=== PATIENT | female | born 1980 | race Caucasian/White ===

== ENCOUNTER 2016-06-26 19:35 | Emergency (ER) | payer MEDICAID, OTHER ==
[~2016-06-26] VITALS: Ht 180.3 cm; Wt 83.9 kg
--- OUTSIDE RECORDS SUMMARY | 2016-06-26 19:45 | XMS REPORT ---
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 Problem Dysthymic disorder 300.4 Active Assessment Tooth pain 525.9 Active Medications Medication Code System Code Instructions Start Date End Date Status Dosage HydrOXYzine HCl [facility] [address]-63 25 MG Orally every 6 hrs October 14, 2014 1 tablet as needed for svere anxiety Gabapentin [facility] [address]-51 100 mg August 20, 2014 1 capsule by Oral route 3 times per day shingles pain Amoxicillin [facility] [address]-14 500 MG Orally every 12 hrs December 29, 2014 January 08, 2015 2 tablet Remeron [facility] [address]-43 15 MG Orally Once a day 1 tablet before bedtime in the evening Fluoxetine [facility] [address]-28 20 MG Once a day August 20, 2014 2 capsule by Oral route 1 time per day BusPIRone HCl [facility] [address]-17 15 MG Orally Three times a day 1 tablet in am 2 tab at noon and 1 tab at hs [place] [facility] [address]-15 7.5-325 MG Orally every 6 hrs December 29, 2014 January 03, 2015 1 tablet as needed Procedures Procedure Coding System Code Date Office Visit, Est Pt., Level 3 CPT-4 62809 December 29, 2014 Vital Signs Date/Time: December 29, 2014 Temperature 98.8 F Weight 209.8 lbs Height 71 in BMI 29.26 Index Blood Pressure Diastolic 78 mmHg Blood Pressure Systolic 122 mmHg Cardiac Monitoring Heart Rate 105 bpm Results No Known Results Summary Purpose [employer] Submission
[2016-06-26 20:06] LABS: BILIRUBIN,URINE NEGATIVE (NEGATIVE); KETONES,URINE NEGATIVE (NEGATIVE); LEUKOCYTE ESTERASE ,URINE 1+ (NEGATIVE); NITRITE,URINE NEGATIVE (NEGATIVE); PH,URINE 7 (5-9); PROTEIN,URINE NEGATIVE (NEGATIVE); UROBILINOGEN,URINE 4 MG/DL (NORMAL)
--- NOTE | 2016-06-26 20:13 | ED General ---
General Chief Complaint: General Problems/Pain Stated Complaint: HEAD COLD, LUMP ON NECK, SPOTTING Nursing Triage Note: PT TO ED 6 W/ C/O LUMP ON NECK ONSET AFTER URI. ALSO C/O IRREGULAR VAGINAL BLEEDING X6 WEEKS. NO OTHER C/O VOICED Nursing Sepsis Screen: No Definite Risk Source of Information: Patient Exam Limitations: No Limitations History of Present Illness Time Seen by Provider: 20:12 Initial Comments To ER with a lump on the back of her neck. She's recently for the past week then ill with a cough runny nose and sore throat. She also reports intermittent vaginal bleeding for the past 6 weeks. Timing/Duration: Intermittent Severity: Moderate Allergies and Home Medications Allergies Uncoded Allergies: NKDA (Allergy, Unknown, 06/26/16) RECOVERING ADDICT, NO NARCS PER PT (Allergy, Unknown, 06/26/16) Constitutional: see HPI EENTM: see HPI Respiratory: no symptoms reported Cardiovascular: no symptoms reported Genitourinary: no symptoms reported Musculoskeletal: no symptoms reported Skin: no symptoms reported Psychiatric/Neurological: No Symptoms Reported Hematologic/Lymphatic: No Symptoms Reported Past Sbbglcz-Utwolj-Rxggrc Hx Patient Social History Alcohol Use: Past History Recreational Drug Use: No (HX OF, 10MOS 1DAY CLEAN OF 06/26/16) Smoking Status: Current Everyday Smoker Recent Foreign Travel: No Contact w/Someone Who Travel: No Recent Infectious Disease Expo: No Recent Hopitalizations: No Physical Abuse Screen: No Sexual Abuse: No Surgeries HX Surgeries: Yes Surgeries: Section, Tubal Ligation Respiratory Hx Respiratory Disorders: No Cardiovascular Hx Cardiac Disorders: No Neurological Hx Neurological Disorders: No Reproductive System Hx Reproductive Disorders: No Genitourinary Hx Genitourinary Disorders: No Gastrointestinal Hx Gastrointestinal Disorders: No Musculoskeletal Hx Musculoskeletal Disorders: No Endocrine Hx Endocrine Disorders: No HEENT HX ENT Disorders: No Cancer Hx Cancer: No Psychosocial Hx Psychiatric Problems: No Integumentary HX Skin/Integumentary Disorder: No Blood Transfusions Hx Blood Disorders: No Physical Exam Vital Signs Vital Sign - Last 12Hours 06/26/16 19:49 Temp 99.7 Pulse 88 Resp 20 B/P 138/102 Pulse Ox 98 O2 Delivery Room Air Capillary Refill : Less Than 3 Seconds General Appearance: No Apparent Distress WD/WN Eyes: Bilateral Eye EOMI, Bilateral Eye Normal Inspection, Bilateral Eye PERRL HEENT: PERRL/EOMI TMs Normal Other (there is a tender mobile 1-2 cm soft nodule at the base of the occiput on the right side.) Neck: Full Range of Motion Normal Inspection Respiratory: No Accessory Muscle Use No Respiratory Distress Cardiovascular: Regular Rate, Rhythm Normal Peripheral Pulses Gastrointestinal: Normal Bowel Sounds Non Tender Soft Neurologic/Psychiatric: Alert Oriented x3 No Motor/Sensory Deficits Skin: Normal Color Warm/Dry Comments No other lymphadenopathy in the neck palpable. Progress/Results/Core Measures Results/Orders Lab Results Laboratory Tests Test 06/26/16 19:55 06/26/16 20:14 Range/Units Ur Tricyclic Antidepressants Screen NEGATIVE NEGATIVE Urine Amorphous Sediment RARE NEEMA URATES H /LPF Urine Amphetamines Screen NEGATIVE NEGATIVE Urine Bacteria NONE /HPF Urine Barbiturates Screen NEGATIVE NEGATIVE Urine Benzodiazepines Screen NEGATIVE NEGATIVE Urine Bilirubin NEGATIVE NEGATIVE Urine Cannabinoids Screen NEGATIVE NEGATIVE Urine Casts NONE /LPF Urine Clarity SLIGHTLY CLOUDY Urine Cocaine Screen NEGATIVE NEGATIVE Urine Color YELLOW Urine Crystals PRESENT H /LPF Urine Culture Indicated NO Urine Glucose (UA) NEGATIVE NEGATIVE Urine Ketones NEGATIVE NEGATIVE Urine Leukocyte Esterase 1+ H NEGATIVE Urine Methadone Screen NEGATIVE NEGATIVE Urine Methamphetamines Screen NEGATIVE NEGATIVE Urine Mucus NEGATIVE /LPF Urine Nitrite NEGATIVE NEGATIVE Urine Opiates Screen NEGATIVE NEGATIVE Urine Oxycodone Screen NEGATIVE NEGATIVE Urine Phencyclidine Screen NEGATIVE NEGATIVE Urine Propoxyphene Screen NEGATIVE NEGATIVE Urine Protein NEGATIVE NEGATIVE Urine RBC 5-10 H /HPF Urine RBC (Auto) 2+ H NEGATIVE Urine Specific [place] 1.010 L 1.016-1.022 Urine Squamous Epithelial Cells 5-10 /HPF Urine Urobilinogen 4 H NORMAL MG/DL Urine WBC 0-2 /HPF Urine pH 7 5-9 Basophils # (Auto) 0.0 0.0-0.1 10^3/uL Basophils (%) (Auto) 0 0-10 % Eosinophils # (Auto) 0.2 0.0-0.3 10^3/uL Eosinophils (%) (Auto) 2 0-10 % Hematocrit 40 35-52 % Hemoglobin 14.1 11.5-16.0 G/DL Lymphocytes # (Auto) 4.0 1.0-4.0 X 10^3 Lymphocytes (%) (Auto) 36 12-44 % Mean Corpuscular Hemoglobin 32 25-34 PG Mean Corpuscular Hemoglobin Concent 35 32-36 G/DL Mean Corpuscular Volume 93 80-99 FL Mean Platelet Volume 9.2 7.4-10.4 FL Monocytes # (Auto) 0.7 0.0-1.0 X 10^3 Monocytes (%) (Auto) 7 0-12 % Monoscreen NEGATIVE NEGATIVE Neutrophils # (Auto) 6.1 1.8-7.8 X 10^3 Neutrophils (%) (Auto) 55 42-75 % Platelet Count 227 130-400 10^3/uL Red Blood Count 4.35 4.35-5.85 10^6/uL Red Cell Distribution Width 13.1 10.0-14.5 % White Blood Count 11.0 4.3-11.0 10^3/uL My Orders Orders-MABEL SERVIN APRN Cbc With Automated Diff (06/26/16 20:01) Ua Culture If Indicated (06/26/16 20:02) Urine Bedside (06/26/16 20:02) Monotest (06/26/16 20:14) Drug Screen Stat (Urine) (06/26/16 20:21) Vital Signs/I&O Vital Sign - Last 12Hours 06/26/16 19:49 Temp 99.7 Pulse 88 Resp 20 B/P 138/102 Pulse Ox 98 O2 Delivery Room Air Blood Pressure Mean: 114 Departure Impression Impression: Primary Impression: Lymphadenopathy Disposition: 01 HOME, SELF-CARE Condition: Stable Departure-Patient Inst. Decision time for Depature: 20:46 Referrals: [facility] (PCP) Primary Care Physician Patient Instructions: LYMPH NODE SWELLING Add. Discharge Instructions: 1. Follow-up with your regular doctor next week 2. Tylenol and Motrin for pain 3. All discharge instructions reviewed with patient and/or family. Voiced understanding. MABEL SERVIN APRN Jun 26, 2016 20:13
[2016-06-26 20:14] LABS: WBC,URINE 0-2 /HPF
[2016-06-26 20:33] LABS: BASOPHILS % (AUTO) 0 % (0-10); EOSINOPHILS # (AUTO) 0.2 10^3/uL (0.0-0.3); EOSINOPHILS % (AUTO) 2 % (0-10); LYMPHOCYTES % (AUTO) 36 % (12-44); MEAN CORPUSCULAR HEMOGLOBIN 32 PG (25-34); MEAN CORPUSCULAR HGB CONC 35 G/DL (32-36); MEAN CORPUSCULAR VOLUME 93 FL (80-99); MEAN PLATELET VOLUME 9.2 FL (7.4-10.4); MONOCYTES # (AUTO) 0.7 X 10^3 (0.0-1.0); MONOCYTES % (AUTO) 7 % (0-12); NEUTROPHILS # (AUTO) 6.1 X 10^3 (1.8-7.8); NEUTROPHILS % (AUTO) 55 % (42-75); PLATELET COUNT 227 10^3/uL (130-400); RED BLOOD COUNT 4.35 10^6/uL (4.35-5.85); RED CELL DISTRIBUTION WIDTH 13.1 % (10.0-14.5)
[2016-06-26 21:03] VITALS: BP 133/95
[2016-07-16] MEDS ORDERED: NITR-65 PO (16:53)
== END 2016-06-26 21:03 | disposition home or self-care (01) ==
LOC: ER 19:41
DX: R59.0 Localized enlarged lymph nodes (principal); N93.9 Abnormal uterine and vaginal bleeding, unspecified; F17.210 Nicotine dependence, cigarettes, uncomplicated
CPT/HCPCS: 36415; 80306; 81000; 84703; 85025; 86308; 99282

== ENCOUNTER 2016-07-02 13:03 | Emergency (ER) | payer MEDICAID ==
[~2016-07-02] VITALS: Ht 167.6 cm; Wt 86.2 kg
--- NOTE | 2016-07-02 13:13 | ED Neurological Problem ---
General Stated Complaint: DISORIENTED/CONFUSION Source: patient Exam Limitations: no limitations History of Present Illness Time seen by provider: 13:11 Initial Comments To ER with reports of confusion/disorientation and trouble focusing since arriving home from work this morning. However, she was able to drive herself to the emergency room and check in. She is employed at [employer]. She was seen here a week ago for lymphadenopathy, menstrual bleeding for 6 weeks and diagnosed with viral syndrome and instructed to follow-up with primary care. She has not followed up with primary care. She reports that her symptoms have improved from last week with lymphadenopathy having resolved, no fevers. Intermittent headaches though none recently. No vomiting. Former opiate addict and states that she would use "anything" but states that she's been clean for a year. No neck stiffness complaints. No fevers. Timing/Duration: 1 week Severity: moderate Allergies and Home Medications Allergies Uncoded Allergies: NKDA (Allergy, Unknown, 06/26/16) RECOVERING ADDICT, NO NARCS PER PT (Allergy, Unknown, 06/26/16) Constitutional: see HPINo chills, No fever Eyes: No Symptoms Reported Ears, Nose, Mouth, Throat: no symptoms reported Respiratory: no symptoms reported Cardiovascular: no symptoms reported Genitourinary: no symptoms reported Musculoskeletal: no symptoms reported Skin: no symptoms reported Psychiatric/Neurological: See HPI Cognitive Dysfunction Past Xamngzi-Dqbaux-Bzotrt Hx Patient Social History Recent Foreign Travel: No Contact w/Someone Who Travel: No Recent Hopitalizations: No Surgeries HX Surgeries: Yes Surgeries: Section, Tubal Ligation Respiratory Hx Respiratory Disorders: No Cardiovascular Hx Cardiac Disorders: No Neurological Hx Neurological Disorders: No Reproductive System Hx Reproductive Disorders: No Genitourinary Hx Genitourinary Disorders: No Gastrointestinal Hx Gastrointestinal Disorders: No Musculoskeletal Hx Musculoskeletal Disorders: No Endocrine Hx Endocrine Disorders: No HEENT HX ENT Disorders: No Cancer Hx Cancer: No Psychosocial Hx Psychiatric Problems: No Integumentary HX Skin/Integumentary Disorder: No Blood Transfusions Hx Blood Disorders: No Physical Exam Vital Signs Vital Sign - Last 12Hours 07/02/16 13:06 Temp 97.5 Pulse 98 Resp 16 B/P 142/94 Pulse Ox 100 O2 Delivery Room Air Capillary Refill : General Appearance: WD/WN no apparent distress HEENT: PERRL/EOMI normal ENT inspection Neck: non-tender full range of motionNo tender lateral, No tender midline, other (no nuchal rigidity) Respiratory: normal breath sounds no respiratory distress no accessory muscle use Cardiovascular: regular rate, rhythm no murmur Peripheral Pulses: 0 Carotid (R), 0 Carotid (L), 0 Femoral (R), 0 Femoral (L), 0 Dorsalis Pedis (R), 0 Left Dors-Pedis (L), 0 Radial Pulses (R), 0 Radial Pulses (L) Gastrointestinal: normal bowel sounds soft Extremities: normal range of motion non-tender Neurologic/Psychiatric: alert normal mood/affect oriented x 3 Crainal Nerves: normal hearing normal speech Coordination/Gait: normal gait Motor/Sensory: no motor deficit Skin: warm/dry Comments Conversation is appropriate, she is alert and joking with staff. There is no confusion I'm able to notice. Progress/Results/Core Measures Results/Orders Lab Results Laboratory Tests Test 07/02/16 13:15 Range/Units Alanine Aminotransferase (ALT/SGPT) 19 0-55 U/L Albumin 4.2 3.2-4.5 G/DL Alkaline Phosphatase 46 40-136 U/L Anion Gap 11 5-14 MMOL/L Aspartate Amino Transf (AST/SGOT) 15 5-34 U/L BUN/Creatinine Ratio 15 Basophils # (Auto) 0.0 0.0-0.1 10^3/uL Basophils (%) (Auto) 0 0-10 % Blood Urea Nitrogen 14 7-18 MG/DL Calcium Level 9.0 8.5-10.1 MG/DL Carbon Dioxide Level 20 L 21-32 MMOL/L Chloride Level 110 H 98-107 MMOL/L Creatinine 0.94 0.60-1.30 MG/DL Eosinophils # (Auto) 0.1 0.0-0.3 10^3/uL Eosinophils (%) (Auto) 1 0-10 % Estimat Glomerular Filtration Rate > 60 Glucose Level 112 H 70-105 MG/DL Hematocrit 42 35-52 % Hemoglobin 14.7 11.5-16.0 G/DL Lymphocytes # (Auto) 3.4 1.0-4.0 X 10^3 Lymphocytes (%) (Auto) 26 12-44 % Mean Corpuscular Hemoglobin 32 25-34 PG Mean Corpuscular Hemoglobin Concent 35 32-36 G/DL Mean Corpuscular Volume 91 80-99 FL Mean Platelet Volume 9.1 7.4-10.4 FL Monocytes # (Auto) 0.9 0.0-1.0 X 10^3 Monocytes (%) (Auto) 7 0-12 % Neutrophils # (Auto) 8.8 H 1.8-7.8 X 10^3 Neutrophils (%) (Auto) 67 42-75 % Platelet Count 235 130-400 10^3/uL Potassium Level 3.5 L 3.6-5.0 MMOL/L Red Blood Count 4.54 4.35-5.85 10^6/uL Red Cell Distribution Width 12.9 10.0-14.5 % Sodium Level 141 135-145 MMOL/L Total Bilirubin 0.4 0.1-1.0 MG/DL Total Protein 7.1 6.4-8.2 G/DL Ur Tricyclic Antidepressants Screen NEGATIVE NEGATIVE Urine Amorphous Sediment FEW NEEMA PHOSPHATE H /LPF Urine Amphetamines Screen NEGATIVE NEGATIVE Urine Bacteria MODERATE H /HPF Urine Barbiturates Screen NEGATIVE NEGATIVE Urine Benzodiazepines Screen NEGATIVE NEGATIVE Urine Bilirubin NEGATIVE NEGATIVE Urine Cannabinoids Screen NEGATIVE NEGATIVE Urine Casts NONE /LPF Urine Clarity SLIGHTLY CLOUDY Urine Cocaine Screen NEGATIVE NEGATIVE Urine Color YELLOW Urine Crystals NONE /LPF Urine Culture Indicated YES Urine Glucose (UA) NEGATIVE NEGATIVE Urine Ketones NEGATIVE NEGATIVE Urine Leukocyte Esterase 1+ H NEGATIVE Urine Methadone Screen NEGATIVE NEGATIVE Urine Methamphetamines Screen NEGATIVE NEGATIVE Urine Mucus NEGATIVE /LPF Urine Nitrite NEGATIVE NEGATIVE Urine Opiates Screen NEGATIVE NEGATIVE Urine Oxycodone Screen NEGATIVE NEGATIVE Urine Phencyclidine Screen NEGATIVE NEGATIVE Urine Propoxyphene Screen NEGATIVE NEGATIVE Urine Protein NEGATIVE NEGATIVE Urine RBC NONE /HPF Urine RBC (Auto) 1+ H NEGATIVE Urine Specific [place] 1.015 L 1.016-1.022 Urine Squamous Epithelial Cells 0-2 /HPF Urine Urobilinogen 4 H NORMAL MG/DL Urine WBC 2-5 /HPF Urine pH 8 5-9 White Blood Count 13.2 H 4.3-11.0 10^3/uL My Orders Orders-MABEL SERVIN DOOR CAPTAIN Cbc With Automated Diff (07/02/16 13:10) Comprehensive Metabolic Panel (07/02/16 13:10) Thyroid Stimulating Hormone (07/02/16 13:10) Ua Culture If Indicated (07/02/16 13:10) Drug Screen Stat (Urine) (07/02/16 13:10) Urine Bedside (07/02/16 13:10) Ct Head Wo (07/02/16 13:10) Urine Culture (07/02/16 13:15) Vital Signs/I&O Vital Sign - Last 12Hours 07/02/16 13:06 Temp 97.5 Pulse 98 Resp 16 B/P 142/94 Pulse Ox 100 O2 Delivery Room Air Diagnostic Imaging Diagonstic Imaging: CT Comments NAME: LIANE GODFREY [facility] REC#: [id number] PT STATUS: REG ER : 1980 PHYSICIAN: MABEL SERVIN APRN ADMIT DATE: 07/02/16/ER Draft Date of Exam:07/02/16 CT HEAD WO PROCEDURE: CT head without contrast. TECHNIQUE: Multiple contiguous axial images were obtained through the brain without the use of intravenous contrast. INDICATION: Confusion. Blurred vision The ventricles are normal in size, shape and position. There is no acute parenchymal hemorrhage, edema or mass. There is some calcification of the anterior falx, but no focal extra-axial mass or hemorrhage is evident. There is no acute bony abnormality. IMPRESSION: No acute abnormality is seen. Dictated on workstation # [id number] Dict: 07/02/16 1344 Trans: 07/02/16 1348 [facility] [id number] Interpreted by: ANAM CHAKRABORTY MD Electronically signed by: Departure Impression Impression: Primary Impression: Subjective confusion Disposition: 01 HOME, SELF-CARE Condition: Stable Departure-Patient Inst. Decision time for Depature: 13:51 Referrals: [facility] (PCP) Primary Care Physician Patient Instructions: NO INSTRUCTIONS GIVEN Add. Discharge Instructions: 1. FOllow up with your doctor Monday 2. Return to ER for any concerns MABEL SERVIN APRN Jul 02, 2016 13:13 MABEL SERVIN APRN Jul 02, 2016 13:13
[2016-07-02 13:26] LABS: BILIRUBIN,URINE NEGATIVE (NEGATIVE); KETONES,URINE NEGATIVE (NEGATIVE); LEUKOCYTE ESTERASE ,URINE 1+ (NEGATIVE); NITRITE,URINE NEGATIVE (NEGATIVE); PH,URINE 8 (5-9); PROTEIN,URINE NEGATIVE (NEGATIVE); UROBILINOGEN,URINE 4 MG/DL (NORMAL)
[2016-07-02 13:31] LABS: BASOPHILS % (AUTO) 0 % (0-10); EOSINOPHILS # (AUTO) 0.1 10^3/uL (0.0-0.3); EOSINOPHILS % (AUTO) 1 % (0-10); LYMPHOCYTES # (AUTO) 3.4 X 10^3 (1.0-4.0); LYMPHOCYTES % (AUTO) 26 % (12-44); MEAN CORPUSCULAR HEMOGLOBIN 32 PG (25-34); MEAN CORPUSCULAR HGB CONC 35 G/DL (32-36); MEAN CORPUSCULAR VOLUME 91 FL (80-99); MEAN PLATELET VOLUME 9.1 FL (7.4-10.4); MONOCYTES # (AUTO) 0.9 X 10^3 (0.0-1.0); MONOCYTES % (AUTO) 7 % (0-12); NEUTROPHILS # (AUTO) 8.8 X 10^3 (1.8-7.8); NEUTROPHILS % (AUTO) 67 % (42-75); PLATELET COUNT 235 10^3/uL (130-400); RED BLOOD COUNT 4.54 10^6/uL (4.35-5.85); RED CELL DISTRIBUTION WIDTH 12.9 % (10.0-14.5); WHITE BLOOD COUNT 13.2 10^3/uL (4.3-11.0)
[2016-07-02 13:43] LABS: ALANINE AMINOTRANSFERASE 19 U/L (0-55); ALBUMIN 4.2 G/DL (3.2-4.5); ANION GAP 11 MMOL/L (5-14); ASPARTATE AMINO TRANSFERASE 15 U/L (5-34); BILIRUBIN,TOTAL 0.4 MG/DL (0.1-1.0); BLOOD UREA NITROGEN 14 MG/DL (7-18); BUN/CREATININE RATIO 15; CARBON DIOXIDE 20 MMOL/L (21-32); CHLORIDE 110 MMOL/L (98-107); CREATININE SERUM 0.94 MG/DL (0.60-1.30); GFR ESTIMATED > 60; GLUCOSE 112 MG/DL (70-105); POTASSIUM 3.5 MMOL/L (3.6-5.0); SODIUM 141 MMOL/L (135-145); SQUAMOUS EPITHELIAL CELL,UR 0-2 /HPF; TOTAL PROTEIN 7.1 G/DL (6.4-8.2)
--- NOTE | 2016-07-02 13:49 | Diagnostic Imaging Report ---
PROCEDURE: CT head without contrast. TECHNIQUE: Multiple contiguous axial images were obtained through the brain without the use of intravenous contrast. INDICATION: Confusion. Blurred vision The ventricles are normal in size, shape and position. There is no acute parenchymal hemorrhage, edema or mass. There is some calcification of the anterior falx, but no focal extra-axial mass or hemorrhage is evident. There is no acute bony abnormality. IMPRESSION: No acute abnormality is seen. Dictated by: Dictated on workstation # [id number]
[2016-07-02 14:03] LABS: THYROID STIMULATING HORMONE 0.56 UIU/ML (0.35-4.94)
[2016-07-02 14:13] VITALS: BP 138/88
[2016-07-16] MEDS ORDERED: NITR-65 PO (16:53)
== END 2016-07-02 14:14 | disposition home or self-care (01) ==
LOC: EDUNIT# 13:03 → ER 13:04
DX: R41.0 Disorientation, unspecified (principal); F11.21 Opioid dependence, in remission
CPT/HCPCS: 36415; 70450; 80053; 80306; 81000; 84443; 84703; 85025; 87077; 87088; 87186